=== PATIENT | female | born 1995 | race Caucasian/White ===

== ENCOUNTER 2018-06-06 15:17 | Outpatient (CLI) | payer OTHER | END 2018-06-06 19:35 | disposition home or self-care (01) | LOC: OBT 15:17 → L-D 15:19 → OBT 19:35 | DX: O36.5930 Maternal care for other known or suspected poor fetal growth, third trimester, not applicable or unspecified (principal); Z3A.37 37 weeks gestation of pregnancy | CPT/HCPCS: 76815; 76818 ==

== ENCOUNTER 2018-06-12 18:36 | Outpatient (CLI) | payer OTHER | END 2018-06-12 21:30 | disposition home or self-care (01) | LOC: OBT 18:36 → L-D 18:37 → OBT 19:50 → L-D 19:50 → OBT 21:30 | DX: O26.93 Pregnancy related conditions, unspecified, third trimester (principal); O26.853 Spotting complicating pregnancy, third trimester; Z3A.38 38 weeks gestation of pregnancy | CPT/HCPCS: 76818 ==

== ENCOUNTER 2018-06-21 04:10 | Outpatient (CLI) | payer OTHER | END 2018-06-21 07:58 | disposition home or self-care (01) | LOC: OBT 04:10 → L-D 04:10 → OBT 07:58 | DX: O60.03 Preterm labor without delivery, third trimester (principal); O26.843 Uterine size-date discrepancy, third trimester; Z3A.38 38 weeks gestation of pregnancy | CPT/HCPCS: 76818 ==

== ENCOUNTER 2018-06-22 22:29 | Outpatient (CLI) | payer OTHER | END 2018-06-22 23:51 | disposition home or self-care (01) | LOC: OBT 22:29 → L-D 22:30 → OBT 23:51 | DX: O62.9 Abnormality of forces of labor, unspecified (principal); Z3A.38 38 weeks gestation of pregnancy | CPT/HCPCS: Z7500 ==

== ENCOUNTER 2018-06-23 16:19 | Inpatient (IN) | payer OTHER ==
[2018-06-23] MEDS ORDERED: BUTORPHANOL 2 MG INJ IV (17:00)
[2018-06-23] MEDS ORDERED: BUTORPHANOL 1 MG INJ IV (17:00)
[2018-06-23] MEDS ORDERED: METHYLERGONOVINE 0.2 MG INJ IM (17:00)
[2018-06-23] MEDS ORDERED: MISOPROSTOL 200 MCG TAB PR (17:00)
[2018-06-23] MEDS ORDERED: OXYTOCIN 30 UNITS/LR 500 ML IV (17:00)
[2018-06-23] MEDS ORDERED: CARBOPROST 250 MCG INJ IM (17:00)
[2018-06-23] MEDS ORDERED: MINERAL OIL 30ML CUP PO (17:00)
[2018-06-23 17:17] LABS: ADD MAN DIFF? NO
[2018-06-23 17:19] LABS: WHITE BLOOD COUNT 10.2 10^3/ul (4.8-10.8)
[2018-06-23 17:19] LABS: BASOPHILS % 0.1 % (0.0-2.0); EOSINOPHILS % 0.1 % (0.0-7.0); HEMATOCRIT 38.9 % (37.0-47.0); HEMOGLOBIN 13.3 g/dl (12.0-16.0); LYMPHOCYTES # 1.5 10^3/ul (0.8-2.9); LYMPHOCYTES % 14.3 % (15.0-51.0); MEAN CORPUSCULAR HEMOGLOBIN 30.3 pg (29.0-33.0); MEAN CORPUSCULAR HGB CONC 34.2 g/dl (32.0-37.0); MEAN CORPUSCULAR VOLUME 88.6 fl (82.0-101.0); MEAN PLATELET VOLUME 9.2 fl (7.4-10.4); MONOCYTE # 0.7 10^3/ul (0.3-0.9); MONOCYTES % 6.5 % (0.0-11.0); NEUTROPHILS % 78.5 % (39.0-77.0); PLATELET COUNT 247 10^3/UL (140-415); RED BLOOD COUNT 4.39 10^6/ul (4.20-5.40); RED CELL DISTRIBUTION WIDTH 13.5 % (11.5-14.5)
[2018-06-23 17:39] LABS: PARTIAL THROMBOPLASTIN TIME 28.6 Sec (23.0-35.0)
[2018-06-23 17:43] LABS: PROTIME 12.3 Sec (11.9-14.9)
[2018-06-23] MEDS: LACTATED RINGER'S 1,000 ML IV ×2 (17:51→20:00)
[2018-06-23 18:08] LABS: HEPATITIS B SURFACE ANTIGEN NEGATIVE (NEGATIVE)
[2018-06-23] MEDS ORDERED: FENTAnyl 2MCG/ML-ROPIV 0.2% 100 ML (19:59)
[2018-06-23] MEDS ORDERED: NALOXONE (0.4 MG/ML) INJ IV (20:00)
[2018-06-23] MEDS ORDERED: DIPHENHYDRAMINE 50 MG INJ IV (20:00)
[2018-06-23] MEDS ORDERED: EPHEDrine SULFATE 50 MG/5 ML SYG IV (20:00)
[2018-06-23] MEDS: OXYTOCIN 30 UNITS/LR 500 ML IV (21:40)
[2018-06-24] MEDS: LACTATED RINGER'S 1,000 ML IV ×3 (00:51→10:16)
[2018-06-24] MEDS: FENTAnyl 2MCG/ML-ROPIV 0.2% 100 ML BAG EPI ×2 (06:33→12:18)
[2018-06-24] MEDS: ONDANSETRON 4 MG INJ IV (09:16)
[2018-06-24] MEDS: AMPICILLIN 2 GM/NS (PMX) 100 ML IVPB (10:50)
[2018-06-24] MEDS ORDERED: AMPICILLIN 1 GM/NS (PMX) 50 ML IVPB (13:00)
[2018-06-24] MEDS: OXYTOCIN 30 UNITS/LR 500 ML IV ×4 (14:30→22:30)
[2018-06-24] MEDS: MINERAL OIL LIGHT 10 ML VIAL TOP (14:35)
[2018-06-24] MEDS: LIDOCAINE 1% (MPF) 30 ML INJ INJ (14:35)
[2018-06-24 15:03] LABS: RAPID PLASMA REAGIN NONREACTIVE (NR)
[2018-06-24] MEDS ORDERED: CARBOPROST 250 MCG INJ IM (15:30)
[2018-06-24] MEDS ORDERED: METHYLERGONOVINE 0.2 MG INJ IM (15:30)
[2018-06-24] MEDS ORDERED: ZOLPIDEM 5 MG TAB PO (15:30)
[2018-06-24] MEDS ORDERED: MISOPROSTOL 200 MCG TAB PR (15:30)
[2018-06-24] MEDS ORDERED: OXYCODONE/ASPIRIN (4.88/325) TAB PO ×2 (15:30)
[2018-06-24] MEDS ORDERED: MEASLES,MUMPS,RUBELLA VACCINE INJ SC* ×2 (15:30→16:00)
[2018-06-24] MEDS ORDERED: OXYTOCIN 30 UNITS/LR 500 ML IV (15:30)
[2018-06-24] MEDS: IBUPROFEN 600 MG TAB PO ×2 (15:42→18:00)
[2018-06-24] MEDS: BENZOCAINE 20% 56 ML SPRAY TOP (18:30)
[2018-06-24] MEDS: LANOLIN HPA 1 PKT TOP (18:30)
[2018-06-24] MEDS: WITCH HAZEL/GLYCERIN PAD PR (18:30)
[2018-06-24] MEDS: SENNA/DOCUSATE NA (8.6MG/50MG) TAB PO (21:28)
[2018-06-25] MEDS: IBUPROFEN 600 MG TAB PO ×5 (00:07→23:50)
[2018-06-25] MEDS: OXYTOCIN 30 UNITS/LR 500 ML IV ×6 (02:30→22:30)
[2018-06-25 08:23] LABS: ADD MAN DIFF? NO
[2018-06-25 08:35] LABS: WHITE BLOOD COUNT 15.6 10^3/ul (4.8-10.8)
[2018-06-25 08:35] LABS: BASOPHILS % 0.1 % (0.0-2.0); EOSINOPHILS % 0.1 % (0.0-7.0); HEMATOCRIT 32.8 % (37.0-47.0); LYMPHOCYTES # 1.7 10^3/ul (0.8-2.9); LYMPHOCYTES % 10.7 % (15.0-51.0); MEAN CORPUSCULAR HEMOGLOBIN 30.5 pg (29.0-33.0); MEAN CORPUSCULAR HGB CONC 33.5 g/dl (32.0-37.0); MEAN CORPUSCULAR VOLUME 90.9 fl (82.0-101.0); MEAN PLATELET VOLUME 9.7 fl (7.4-10.4); MONOCYTE # 1.4 10^3/ul (0.3-0.9); MONOCYTES % 8.8 % (0.0-11.0); NEUTROPHIL # 12.4 10^3/ul (1.6-7.5); NEUTROPHILS % 79.6 % (39.0-77.0); PLATELET COUNT 177 10^3/UL (140-415); RED BLOOD COUNT 3.61 10^6/ul (4.20-5.40); RED CELL DISTRIBUTION WIDTH 13.8 % (11.5-14.5)
[2018-06-25] MEDS ORDERED: MEASLES,MUMPS,RUBELLA VACCINE INJ SC* (09:00)
[2018-06-25] MEDS: SENNA/DOCUSATE NA (8.6MG/50MG) TAB PO ×2 (09:07→21:01)
[2018-06-25 18:22] LABS: ADD MAN DIFF? NO
[2018-06-25 18:25] LABS: BASOPHILS % 0.2 % (0.0-2.0); EOSINOPHILS % 0.3 % (0.0-7.0); HEMATOCRIT 31.6 % (37.0-47.0); HEMOGLOBIN 10.6 g/dl (12.0-16.0); LYMPHOCYTES # 1.9 10^3/ul (0.8-2.9); LYMPHOCYTES % 13.9 % (15.0-51.0); MEAN CORPUSCULAR HEMOGLOBIN 30.3 pg (29.0-33.0); MEAN CORPUSCULAR HGB CONC 33.5 g/dl (32.0-37.0); MEAN CORPUSCULAR VOLUME 90.3 fl (82.0-101.0); MEAN PLATELET VOLUME 9.4 fl (7.4-10.4); MONOCYTE # 0.8 10^3/ul (0.3-0.9); NEUTROPHIL # 10.6 10^3/ul (1.6-7.5); NEUTROPHILS % 78.8 % (39.0-77.0); PLATELET COUNT 188 10^3/UL (140-415); RED CELL DISTRIBUTION WIDTH 13.9 % (11.5-14.5)
[2018-06-25 18:25] LABS: WHITE BLOOD COUNT 13.5 10^3/ul (4.8-10.8)
[2018-06-25] MEDS: MEASLES,MUMPS,RUBELLA VACCINE INJ SC* (19:36)
[2018-06-26] MEDS: OXYTOCIN 30 UNITS/LR 500 ML IV ×2 (02:30→06:30)
[2018-06-26] MEDS: IBUPROFEN 600 MG TAB PO ×2 (06:08→12:20)
[2018-06-26] MEDS: SENNA/DOCUSATE NA (8.6MG/50MG) TAB PO (09:21)
[2018-06-26] MEDS: DIPHTH/TET/ACEL PERTUSS (ADULT) 0.5 ML VIAL IM* (09:21)
== END 2018-06-26 15:20 | disposition home or self-care (01) | DRG 807 ==
LOC: L-D 16:19 → PP1 06-24 18:09
PROVIDERS: Specialist
PROC: 10E0XZZ Delivery of Products of Conception, External Approach (ICD-10-PCS; principal; 2018-06-23)
PROC: 0W8NXZZ Division of Female Perineum, External Approach (ICD-10-PCS; 2018-06-23)
PROC: 3E033VJ Introduction of Other Hormone into Peripheral Vein, Percutaneous Approach (ICD-10-PCS; 2018-06-23)
DX: O48.0 Post-term pregnancy (principal); Z37.0 Single live birth; Z3A.40 40 weeks gestation of pregnancy
CPT/HCPCS: 76815; 85025; 85610; 85730; 86592; 86850; 86900; 86901; 87340; 99464